=== PATIENT | male | born 1990 | race Caucasian/White ===

== ENCOUNTER 2017-11-14 13:14 | Emergency (ER) | payer SELFPAY ==
--- NOTE | 2017-11-14 13:27 | ED Physician Documentation ---
PD HPI SKIN - Stated complaint Stated Complaint: LUMP ON FOREHEAD - Chief complaint Chief Complaint: Wound - History obtained from History obtained from: Patient - History of Present Illness Timing - onset: Other (Starting about 4 days ago he has had a painful pimple- like swelling on the upper right forehead which developed significant swelling of the forehead today but no systemic symptoms i.e. no fevers or chills.) Review of Systems Constitutional: denies: Fever, Chills Nose: denies: Rhinorrhea / runny nose, Congestion Throat: denies: Dental pain / toothache, Sore throat PD PAST MEDICAL HISTORY - Present Medications Home Medications: Ambulatory Orders Medication Instructions Recorded Confirmed Cephalexin [Keflex] 500 mg PO QID #40 capsule 11/14/17 Sulfamethoxazole/Trimethoprim 1 each PO BID 10 Days tablet 11/14/17 [Sulfamethoxazole-Tmp Ds Tablet] - Allergies Allergies/Adverse Reactions: Allergies Allergy/AdvReac Type Severity Reaction Status Date / Time No Known Drug Allergies Allergy Verified 11/14/17 13:26 PD ED PE NORMAL - Vitals Vital signs reviewed: Yes - General General: Alert and oriented X 3, No acute distress - HEENT HEENT: Other (There is a very small non-pointed abscess with surrounding swollen cellulitis of the right upper forehead, on bedside ultrasound of the fluid collection is only about 5 mm across.) - Neck Neck: Supple, no meningeal sign, No bony TTP - Neuro Neuro: Alert and oriented X 3, Normal speech Results - Vitals Vitals: Vital Signs - 24 hr 11/14/17 13:21 Temperature 36.1 C L Heart Rate 94 Respiratory 14 Rate Blood Pressure 169/97 H O2 Saturation 100 Oxygen O2 Source Room air Procedures - Abscess I&D (location) Forehead Preparation: Confirmed with ultrasound, Betadine, Lidocaine 1% Incision: Needle aspiration, Purulent drainage, Culture obtained Other: Pt tolerated well, Dressing applied PD MEDICAL DECISION MAKING - Sepsis Event Vital Signs: Vital Signs - 24 hr 11/14/17 13:21 Temperature 36.1 C L Heart Rate 94 Respiratory 14 Rate Blood Pressure 169/97 H O2 Saturation 100 Oxygen O2 Source Room air Departure - Departure Disposition: 01 Home, Self Care Clinical Impression: Abscess Condition: Good Record reviewed to determine appropriate education?: Yes Instructions: ED Abscess IandD Prescriptions: Cephalexin [Keflex] 500 mg PO QID #40 capsule Sulfamethoxazole/Trimethoprim [Sulfamethoxazole-Tmp Ds Tablet] 1 each PO BID 10 Days tablet Comments: We are performing a wound culture, the results should be done in 48-72 hours. If antibiotic change is necessary we will call you. Return if worse in the meantime, especially if you develop increased pain, fevers, cannot keep down the medication. Otherwise follow-up with your physician in approximately 2-3 days. Your blood pressure was elevated today on check into the emergency department. This does not mean that you have hypertension, it is a common phenomenon to come to the emergency department and have elevated blood pressure. I recommend that you see your primary care physician within the week to have it rechecked when you are feeling better.
[2017-11-14 13:30] VITALS: BP 169/97
[2017-11-14] MEDS ORDERED: BUFFERED LIDOCAINE 10 ML SYRINGE ONE (13:39)
== END 2017-11-14 13:40 | disposition home or self-care (01) ==
LOC: ED 13:14
DX: L02.01 Cutaneous abscess of face (principal); L03.211 Cellulitis of face; R03.0 Elevated blood-pressure reading, without diagnosis of hypertension
CPT/HCPCS: 10060; 87070; 87205; 99283

== ENCOUNTER 2018-05-24 08:22 | Emergency (ER) | payer OTHER ==
[2018-05-24 08:29] VITALS: BP 166/100
--- NOTE | 2018-05-24 08:38 | ED Physician Documentation ---
PD HPI SKIN - Stated complaint Stated Complaint: NECK LAC - Chief complaint Chief Complaint: Wound - History obtained from History obtained from: Patient - History of Present Illness Timing - duration: Days (several) Timing - details: Gradual onset Location: Neck Quality / character: Painful, Raised, Swelling, Draining Similar symptoms before: Diagnosis (History of MRSA.) - Additional information Additional information: The patient is a 27-year-old male who presents with a draining lesion on the back of his neck. He first noticed it several days ago, and it became gradually larger in size, until it started draining. 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 He has personally had similar abscesses in the past that have been positive for MRSA. He denies fever, headache, sore throat, or cough. 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.) - Past Surgical History General: Appendectomy - Present Medications Home Medications: Ambulatory Orders Medication Instructions Recorded Confirmed Sulfamethox/Trimeth 800/160 1 each PO BID #14 tablet 05/24/18 [Bactrim Ds 800/160] - Allergies Allergies/Adverse Reactions: Allergies Allergy/AdvReac Type Severity Reaction Status Date / Time No Known Drug Allergies Allergy Verified 05/24/18 08:29 - Social History Does the pt smoke?: No Smoking Status: Never smoker Does the pt drink ETOH?: No Does the pt have substance abuse?: No - Immunizations Immunizations are current?: Yes - POLST Patient has POLST: No PD ED PE NORMAL - Vitals Vital signs reviewed: Yes (Initially hypertensive.) - General General: Alert and oriented X 3, Well developed/nourished - HEENT HEENT: Atraumatic - Neck Neck: Supple, no meningeal sign, No adenopathy, Other (Small abscess site is noted on the right posterior neck at the hairline. It has drained and there is crusting in the center of the raised, slightly erythematous lesion. There is no fluctuance, but there is localized tenderness to palpation.) - Cardiac Cardiac: RRR - Respiratory Respiratory: No respiratory distress - Derm Derm: Other (Small, draining abscess on the right posterior neck.) - Neuro Neuro: Alert and oriented X 3 Results - Vitals Vitals: Oxygen O2 Source Room air PD MEDICAL DECISION MAKING - ED course Complexity details: considered differential, d/w patient ED course: The patient's presentation is most consistent with spontaneous drained abscess/folliculitis. With his history of MRSA, that is the likely offending organism. He is being discharged with prescription for Bactrim DS. I discussed with him the expected course of illness, antibiotic treatment and outpatient follow-up, as well as potentially worrisome signs or symptoms that should prompt reevaluation in the emergency department. Departure - Departure Disposition: 01 Home, Self Care Clinical Impression: Folliculitis Condition: Stable Instructions: ED Staph Infec Abx Tx Only Follow-Up: [facility] [Provider Group] Prescriptions: Sulfamethox/Trimeth 800/160 [Bactrim Ds 800/160] 1 each PO BID #14 tablet Comments: Apply hot soaks to the infected area intermittently for the next several days. Take Bactrim DS twice daily as prescribed. You can apply antibiotic ointment to the infected area. You can use Tylenol or ibuprofen if needed for discomfort. Follow-up with primary physician, or return to the emergency department, if you develop increasing redness, swelling, pain, or otherwise worsening symptoms. Discharge Date/Time: 05/24/18 08:43
== END 2018-05-24 08:43 | disposition home or self-care (01) ==
LOC: ED 08:22
DX: L73.9 Follicular disorder, unspecified (principal); L02.11 Cutaneous abscess of neck; Z86.14 Personal history of Methicillin resistant Staphylococcus aureus infection
CPT/HCPCS: 99283

== ENCOUNTER 2018-06-09 19:34 | Emergency (ER) | payer OTHER ==
[2018-06-09 19:47] VITALS: BP 166/99
== END 2018-06-09 19:47 | disposition left against medical advice (07) ==
LOC: ED 19:34
DX: L98.9 Disorder of the skin and subcutaneous tissue, unspecified (principal); Z53.21 Procedure and treatment not carried out due to patient leaving prior to being seen by health care provider

== ENCOUNTER 2018-06-14 07:48 | Emergency (ER) | payer OTHER ==
[2018-06-14 07:59] VITALS: BP 141/89
--- NOTE | 2018-06-14 08:34 | ED Physician Documentation ---
PD HPI SKIN - Stated complaint Stated Complaint: EAR/NECK REDNESS - Chief complaint Chief Complaint: Wound - History obtained from History obtained from: Patient - History of Present Illness Timing - onset: How many days ago (4) Timing - duration: Days (4) Timing - details: Gradual onset Location: Scalp, Other (right ear) Quality / character: Crusted Contributing factors: Other (volleyball assistant coach) Similar symptoms before: Diagnosis (History of similar skin infections in the past.) Recently seen: Emergency Dept (One month ago with same.) - Additional information Additional information: The patient is a 27-year-old male who presents with "staph infection" on his occipital scalp and his right ear. His infection started 4 days ago and has been increasing since that time. He reports a similar episode 1 month ago, and was seen here, previously prescribed Bactrim, and had complete resolution, until recurrence 4 days ago. He denies fever, headache, or sore throat. 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 He reports a past personal history of MRSA. Review of Systems Constitutional: denies: Fever Nose: denies: Congestion Throat: denies: Sore throat Respiratory: denies: Dyspnea, Cough GI: denies: Nausea, Vomiting Skin: reports: Rash Musculoskeletal: denies: Neck pain Neurologic: denies: Headache PD PAST MEDICAL HISTORY - Past Medical History Endocrine/Autoimmune: None Derm: Other drug resistant infections - Past Surgical History General: Appendectomy - Present Medications Home Medications: Ambulatory Orders Medication Instructions Recorded Confirmed Sulfamethox/Trimeth 800/160 1 each PO BID #14 tablet 06/14/18 [Bactrim Ds 800/160] - Allergies Allergies/Adverse Reactions: Allergies Allergy/AdvReac Type Severity Reaction Status Date / Time No Known Drug Allergies Allergy Verified 06/14/18 07:59 - Social History Does the pt smoke?: No Smoking Status: Never smoker Does the pt drink ETOH?: No Does the pt have substance abuse?: No - Immunizations Immunizations are current?: Yes - POLST Patient has POLST: No PD ED PE NORMAL - Vitals Vital signs reviewed: Yes (hypertensive initially) - General General: Alert and oriented X 3, Well developed/nourished - HEENT HEENT: Atraumatic, EOMI, Ears normal, Pharynx benign - Neck Neck: Supple, no meningeal sign, No adenopathy - Cardiac Cardiac: RRR - Respiratory Respiratory: No respiratory distress, Clear bilaterally - Derm Derm: Other (There is crusting erythematous infection on the pinna of the right ear, about 1 cm x 1/2 cm in size. There is a similar cellulitic infection on the left occipital scalp, about 1-1/2 cm diameter.) - Neuro Neuro: Alert and oriented X 3, Normal speech Results - Vitals Vitals: Vital Signs - 24 hr 06/14/18 07:55 Temperature 36.6 C Heart Rate 71 Respiratory 18 Rate Blood Pressure 141/89 H O2 Saturation 99 Oxygen O2 Source Room air PD MEDICAL DECISION MAKING - ED course Complexity details: reviewed old records, considered differential, d/w patient ED course: The patient's presentation is significant for recurrent cellulitic staph infection. There is no evidence of abscess. With his past history of MRSA, and history of wrestling, that is the likely etiology. He was seen here 1 month ago for similar symptoms and had complete resolution with Bactrim. He is being discharged with prescription for Bactrim DS. I discussed with him the antibiotic treatment, outpatient follow-up, as well as potentially worrisome signs or symptoms that should prompt reevaluation in the emergency department. Departure - Departure Disposition: 01 Home, Self Care Clinical Impression: Staph skin infection Condition: Stable Instructions: ED Staph Infec Abx Tx Only Follow-Up: [facility] [Provider Group] Prescriptions: Sulfamethox/Trimeth 800/160 [Bactrim Ds 800/160] 1 each PO BID #14 tablet Comments: Take Bactrim DS twice daily as prescribed. You can use Tylenol or ibuprofen if needed for discomfort. Follow-up with primary physician within 2 weeks. Call to schedule an appointment. Return to the emergency department if you develop increasing infection, or otherwise worsening symptoms.
== END 2018-06-14 08:44 | disposition home or self-care (01) ==
LOC: ED 07:48
DX: L03.811 Cellulitis of head [any part, except face] (principal); H60.11 Cellulitis of right external ear; B95.8 Unspecified staphylococcus as the cause of diseases classified elsewhere; Z86.14 Personal history of Methicillin resistant Staphylococcus aureus infection
CPT/HCPCS: 99283

== ENCOUNTER 2020-07-24 17:13 | Outpatient (CLI) | payer OTHER ==
--- NOTE | 2020-07-25 09:43 | Ultrasound Report ---
PROCEDURE: Abdomen Limited INDICATIONS: ABD SWELLING AND MASS TECHNIQUE: Real-time focused scanning was performed of the abdomen, with image documentation. COMPARISON: None. FINDINGS: There is a fat-containing supraumbilical hernia. The hernia sac measures approximately 2 c m maximum dimension. The neck of the hernia measures 0.7 cm. The hernia appears to be nonreducible. IMPRESSION: Fat-containing supraumbilical hernia, which appears to be nonreducible. Reviewed by: Bryn Mckeon MD on 07/25/2020 9:41 AM PDT Approved by: Bryn Mckeon MD on 07/25/2020 9:41 AM PDT Station ID: [id number]
== END 2020-07-24 17:14 | disposition home or self-care (01) ==
LOC: DI 17:13
PROVIDERS: ATTEND Nurse Practitioner Family
DX: K43.9 Ventral hernia without obstruction or gangrene (principal)